=== PATIENT | male | born 1975 | race Native Hawaiian/Other Pacific Islander ===

== ENCOUNTER 2017-04-10 22:35 | Emergency (ER) | payer OTHER ==
[~2017-04-10] VITALS: Ht 182.9 cm; Wt 88.5 kg
[2017-04-10 23:24] LABS: PLATELET COUNT 367 K/uL (142-355)
[2017-04-10 23:49] LABS: PARTIAL THROMBOPLASTIN TIME 27.7 SECONDS (24.5-33.6)
[2017-04-11 00:15] VITALS: BP 110/63; TEMP 98.2
== END 2017-04-11 00:15 | disposition home or self-care (01) ==
LOC: ED 22:35
PROVIDERS: Specialist
DX: R07.81 Pleurodynia (principal); R07.89 Other chest pain
CPT/HCPCS: 36415; 80307; 81000; 82550; 84484; 85027; 85610; 85730; 93005; 99284

== ENCOUNTER 2017-07-23 10:13 | Emergency (ER) | payer OTHER ==
[~2017-07-23] VITALS: Ht 182.9 cm; Wt 90.7 kg
[2017-07-23 12:55] LABS: PLATELET COUNT 301 K/uL (142-355)
[2017-07-23 13:00] LABS: POTASSIUM 3.9 mmol/L (3.6-5.2)
[2017-07-23 16:30] VITALS: BP 104/56; TEMP 98.1
== END 2017-07-23 16:30 | disposition home or self-care (01) ==
LOC: ED 10:13
PROVIDERS: Emergency Medicine
DX: R10.32 Left lower quadrant pain (principal); R10.31 Right lower quadrant pain; F15.90 Other stimulant use, unspecified, uncomplicated; F13.90 Sedative, hypnotic, or anxiolytic use, unspecified, uncomplicated
CPT/HCPCS: 36415; 80053; 80307; 81000; 83605; 85027; 96365; 99284; J2543; Q9963

== ENCOUNTER 2017-11-12 14:28 | Emergency (ER) | payer OTHER ==
[~2017-11-12] VITALS: Ht 185.4 cm; Wt 90.7 kg
[2017-11-12 14:30] VITALS: BP 103/56; TEMP 97.5
[2017-11-12] MEDS ORDERED: PERCOCET1 TA1 PO (14:40)
[2017-11-12 15:16] LABS: PLATELET COUNT 385 K/uL (142-355)
[2017-11-12 15:21] LABS: POTASSIUM 3.5 mmol/L (3.6-5.2)
== END 2017-11-12 15:28 | disposition home or self-care (01) ==
LOC: ED 14:28
DX: T63.301A Toxic effect of unspecified spider venom, accidental (unintentional), initial encounter (principal); L03.113 Cellulitis of right upper limb
CPT/HCPCS: 80053; 85027; 99282

== ENCOUNTER 2020-12-24 11:52 | Outpatient (CLI) | payer OTHER ==
[~2020-12-24 11:52] MED LIST: PERCOCET1 TA1 PO
== END 2020-12-24 19:09 | disposition home or self-care (01) ==
LOC: LABW 11:52
PROVIDERS: ATTEND Orthopaedic Surgery
DX: F19.11 Other psychoactive substance abuse, in remission (principal)
CPT/HCPCS: 36415; 80307; 86803; 87535; G0432

== ENCOUNTER 2021-01-15 17:14 | Outpatient (CLI) | payer OTHER | END 2021-01-15 20:27 | disposition home or self-care (01) | LOC: LABW 17:14 | PROVIDERS: ATTEND Orthopaedic Surgery | DX: F19.11 Other psychoactive substance abuse, in remission (principal) | CPT/HCPCS: 80307 ==

== ENCOUNTER 2021-01-30 11:26 | Emergency (ER) | payer OTHER ==
[~2021-01-30] VITALS: Ht 182.9 cm; Wt 99.8 kg
[2021-01-30 11:31] VITALS: TEMP 98.7
[2021-01-30] MEDS ORDERED: DILAUDID8 MG PO (11:42)
[2021-01-30 13:32] VITALS: BP 148/82
== END 2021-01-30 13:32 | disposition home or self-care (01) ==
LOC: ED 11:26
DX: T70.1XXA Sinus barotrauma, initial encounter (principal); J32.8 Other chronic sinusitis; X58.XXXA Exposure to other specified factors, initial encounter; Y92.89 Other specified places as the place of occurrence of the external cause
CPT/HCPCS: 96372; 99283; J0696; J1885; J2001

== ENCOUNTER 2021-03-13 13:21 | Outpatient (CLI) | payer OTHER ==
[~2021-03-13 13:21] MED LIST changes: +DILAUDID8 MG PO
[2021-03-13 14:59] LABS: PLATELET COUNT 384 K/uL (142-355)
[2021-03-13 15:16] LABS: POTASSIUM 3.5 mmol/L (3.6-5.2)
== END 2021-03-13 18:58 | disposition home or self-care (01) ==
LOC: LABW 13:21
PROVIDERS: ATTEND Orthopaedic Surgery
DX: Z79.899 Other long term (current) drug therapy (principal); Z13.228 Encounter for screening for other metabolic disorders; Z01.810 Encounter for preprocedural cardiovascular examination; Z01.812 Encounter for preprocedural laboratory examination; Z13.1 Encounter for screening for diabetes mellitus; Z13.6 Encounter for screening for cardiovascular disorders; F17.210 Nicotine dependence, cigarettes, uncomplicated
CPT/HCPCS: 36415; 80053; 80323; 83036; 84134; 85027; 85652; 86140

== ENCOUNTER 2021-08-14 12:28 | Emergency (ER) | payer OTHER ==
[~2021-08-14] VITALS: Ht 182.9 cm; Wt 102.1 kg
[2021-08-14 12:30] VITALS: TEMP 98
[2021-08-14 13:30] VITALS: BP 122/80
[2021-08-14 13:44] LABS: PLATELET COUNT 313 K/uL (142-355)
[2021-08-14 13:47] LABS: POTASSIUM 2.7 mmol/L (3.6-5.2)
== END 2021-08-14 14:27 | disposition home or self-care (01) ==
LOC: ED 12:28
PROVIDERS: Hospitalist
DX: L03.114 Cellulitis of left upper limb (principal); T63.301A Toxic effect of unspecified spider venom, accidental (unintentional), initial encounter; X58.XXXA Exposure to other specified factors, initial encounter; Y92.89 Other specified places as the place of occurrence of the external cause
CPT/HCPCS: 36415; 80048; 83605; 85027; 87040; 87070; 87205; 96365; 96375; 99284; J1100; J1885; J2405; J2543

== ENCOUNTER 2022-08-10 18:28 | Emergency (ER) | payer OTHER ==
[~2022-08-10] VITALS: Ht 182.9 cm; Wt 99.8 kg
[2022-08-10 18:30] VITALS: TEMP 97.8
[2022-08-10 18:54] LABS: PLATELET COUNT 478 K/uL (142-355)
[2022-08-10 19:02] LABS: POTASSIUM 3.4 mmol/L (3.6-5.2)
[2022-08-10 20:30] VITALS: BP 157/95
== END 2022-08-10 21:49 ==
LOC: ED 18:28
PROVIDERS: Family Medicine
DX: M94.0 Chondrocostal junction syndrome [Tietze] (principal)
CPT/HCPCS: 36415; 80053; 84484; 85027; 93005; 99283; J2405